=== PATIENT | female | born 1985 | race Caucasian/White ===

== ENCOUNTER 2020-09-11 06:37 | Emergency (ER) | payer OTHER ==
[~2020-09-11] VITALS: Ht 170.2 cm; Wt 88.5 kg
[2020-09-11] MEDS ORDERED: ADDERALL 20 MG20 MG PO (06:51)
[2020-09-11] MEDS ORDERED: NORCO 7.5-3251 EACH PO (07:28)
--- OUTSIDE RECORDS SUMMARY | 2020-09-11 08:14 | XMS ---
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 Fermín has no Care Guidelines for this patient. [facility]12 MO.) [facility] NOTE: Visits indicate total known visits. ED/C VISIT TRACKING (12 MO.) 09/11/2020 06:38 [facility] [place] TYPE: Emergency COMPLAINT: - ANKLE INJURY 05/31/2020 07:50 [facility] [place] TYPE: Emergency DIAGNOSES: - Sprain of unspecified site of right knee, initial encounter INPATIENT VISIT TRACKING (12 MO.) No inpatient visits to display in this time frame [id number]
== END 2020-09-11 08:00 | disposition home or self-care (01) ==
LOC: ED 06:37
DX: S93.402A Sprain of unspecified ligament of left ankle, initial encounter (principal); F90.9 Attention-deficit hyperactivity disorder, unspecified type; F17.200 Nicotine dependence, unspecified, uncomplicated; Z79.899 Other long term (current) drug therapy; X50.9XXA Other and unspecified overexertion or strenuous movements or postures, initial encounter
CPT/HCPCS: 73610; 99283-25; A9270